=== PATIENT | female | born 1935 | race Caucasian/White ===

== ENCOUNTER → 2016-11-11 | Outpatient (REF) | payer MEDICARE, BC ==
[~2016-11-11] MED LIST: /GLIM2TA PO; /LOR25TA OR; ALLE180T33 PO; AMLO5TAB2 PO; ATEN50TA2 PO; BABY81CH; BYDUINJ INJ; BYETTA; COLA100C PO; COLA100C2; COLC1TAB13 PO; CORD200T PO; COUM1TAB14 PO; COUM1TAB19 PO; FLON1SPR; HYDR25TA6 PO; INSULANT SC; JANUVIA PO; LASI20TA PO; LEVO75TA4 PO; LIPITOR PO; LISI-538 PO; LISIPOW PO; MILKSUS PO; MIRA3350 PO; NEUR300C; NORV5TAB PO; NORVASC; NORVASC PO; PERC5TAB8; PERC5TAB8 OR; PERCOCET PO; POTA10CA PO; PRAV10TA4 PO; PRAV40TA PO; PRIN10TA PO; PROT1TAB2 PO; SENO8.6T2 PO; SYNT75TA PO; SYNTHROID PO; TENO25TA PO; TORS20TA2 PO; TRAM50TA2 PO; TYLE325T5 PO; ULTR50TA PO; VITA-130 PO; WARFARIN PO
== END ==
LOC: M SFHCPLAZ 17:01
PROVIDERS: ATTEND Physician Assistant Medical
DX: R30.0 Dysuria (principal)
CPT/HCPCS: 81001; 81002; 87086; G0463

== ENCOUNTER → 2016-11-26 | Outpatient (REF) | payer MEDICARE, BC ==
[2016-11-26 12:37] LABS: INR 4.3
== END ==
LOC: M SFHCPLAZ 11:30
PROVIDERS: ATTEND Physician Assistant Medical
DX: Z51.81 Encounter for therapeutic drug level monitoring (principal); Z79.01 Long term (current) use of anticoagulants

== ENCOUNTER → 2016-12-08 | Outpatient (REF) | payer MEDICARE, BC ==
[2016-12-08 18:22] LABS: INR 1.91
[2016-12-08 18:34] LABS: ALBUMIN 4.1 GM/DL (3.2-5.2); ALBUMIN/GLOBULIN RATIO 1.21 (1.00-1.93); BILIRUBIN,TOTAL 0.7 MG/DL (0.2-1.0); CALCIUM LEVEL 9.2 MG/DL (8.8-10.2); CREATININE FOR GFR 1.65 MG/DL (0.55-1.02); GLOMERULAR FILTRATION RATE 31.9 (>32); POTASSIUM SERUM 4.4 MEQ/L (3.5-5.1); TOTAL PROTEIN 7.5 GM/DL (6.4-8.2)
== END ==
LOC: M SFHCPLAZ 09:25
PROVIDERS: ATTEND Internal Medicine
DX: E11.9 Type 2 diabetes mellitus without complications (principal); E78.00 Pure hypercholesterolemia, unspecified; Z51.81 Encounter for therapeutic drug level monitoring; Z79.01 Long term (current) use of anticoagulants; I10 Essential (primary) hypertension; E03.9 Hypothyroidism, unspecified

== ENCOUNTER → 2016-12-23 | Outpatient (REF) | payer MEDICARE, BC ==
[2016-12-23 19:42] LABS: INR 1.78
== END ==
LOC: M SFHCPLAZ 13:11
PROVIDERS: ATTEND Internal Medicine
DX: Z51.81 Encounter for therapeutic drug level monitoring (principal); Z79.01 Long term (current) use of anticoagulants

== ENCOUNTER → 2017-01-07 | Outpatient (REF) | payer MEDICARE, BC | LOC: M SFHCPLAZ 11:38 | PROVIDERS: ATTEND Internal Medicine | DX: Z51.81 Encounter for therapeutic drug level monitoring (principal); Z79.01 Long term (current) use of anticoagulants ==

== ENCOUNTER → 2017-01-29 | Outpatient (REF) | payer MEDICARE, BC ==
[2017-01-29 13:35] LABS: INR 1.39
== END ==
LOC: M LABDRWAD 12:13
PROVIDERS: ATTEND Nurse Practitioner Family
DX: Z79.01 Long term (current) use of anticoagulants (principal)

== ENCOUNTER → 2017-02-16 | Outpatient (REF) | payer MEDICARE, BC ==
[~2017-02-16] MED LIST changes: -COLA100C PO; +COLA100C3 PO
[2017-02-16 13:46] LABS: INR 2.43
== END ==
LOC: M SFHCPLAZ 11:39
PROVIDERS: ATTEND Physician Assistant Medical
DX: I48.91 Unspecified atrial fibrillation (principal); Z79.01 Long term (current) use of anticoagulants

== ENCOUNTER → 2017-03-01 | Outpatient (REF) | payer MEDICARE, BC ==
[2017-03-01 20:12] LABS: INR 2.54
== END ==
LOC: M SFHCPLAZ 11:40
PROVIDERS: ATTEND Internal Medicine
DX: I48.91 Unspecified atrial fibrillation (principal); Z79.01 Long term (current) use of anticoagulants

== ENCOUNTER → 2017-04-02 | Outpatient (REF) | payer MEDICARE, BC ==
[2017-04-02 13:26] LABS: INR 3.5
== END ==
LOC: M SFHCPLAZ 10:38
PROVIDERS: ATTEND Internal Medicine
DX: I48.91 Unspecified atrial fibrillation (principal); Z79.01 Long term (current) use of anticoagulants

== ENCOUNTER → 2017-04-07 | Outpatient (REF) | payer MEDICARE, BC ==
[2017-04-07 13:02] LABS: INR 3.41
== END ==
LOC: M SFHCPLAZ 11:39
PROVIDERS: ATTEND Internal Medicine
DX: I48.91 Unspecified atrial fibrillation (principal); Z79.899 Other long term (current) drug therapy

== ENCOUNTER → 2017-04-14 | Outpatient (REF) | payer MEDICARE, BC ==
[2017-04-14 13:15] LABS: INR 1.65
== END ==
LOC: M SFHCPLAZ 10:48
PROVIDERS: ATTEND Internal Medicine
DX: I48.91 Unspecified atrial fibrillation (principal); Z79.899 Other long term (current) drug therapy

== ENCOUNTER → 2017-04-28 | Outpatient (REF) | payer MEDICARE, BC ==
[2017-04-28 19:32] LABS: INR 2.42
== END ==
LOC: M SFHCPLAZ 13:24
PROVIDERS: ATTEND Internal Medicine
DX: I48.91 Unspecified atrial fibrillation (principal); Z79.899 Other long term (current) drug therapy

== ENCOUNTER 2017-05-05 15:57 | Emergency (ER) | payer MEDICARE, BC ==
[~2017-05-05] VITALS: Ht 162.6 cm; Wt 81.0 kg
[~2017-05-05 15:57] MED LIST changes: -COLA100C3 PO; +COLA100C5 PO; -SENO8.6T2 PO; +SENO8.6T5 PO; -ULTR50TA PO; +ULTR50TA8 PO; -VITA-130 PO; +VITA500T PO
[2017-05-05 17:13] LABS: BASO % 0.7 % (0.0-1.0); EOS % 0.6 % (0.0-3.0); LARGE UNSTAINED CELL # 0.1 K/mm3 (0.0-0.4); LARGE UNSTAINED CELL % 1.4 % (0.0-4.0); LYMPH # 0.7 K/mm3 (1.5-4.5); LYMPH % 9.4 % (24.0-44.0); MEAN CORPUSCULAR HEMOGLOBIN 29.7 pg (27.0-33.0); MEAN CORPUSCULAR HGB CONC 32.4 g/dl (32.0-36.5); MEAN CORPUSCULAR VOLUME 91.9 fl (80.0-96.0); MONO # 0.5 K/mm3 (0.0-0.8); MONO % 6.4 % (0.0-5.0); NEUTROPHILS # 6.2 K/mm3 (1.8-7.7); NEUTROPHILS % 81.4 % (36.0-66.0); PLATELET COUNT, AUTOMATED 169 k/mm3 (150-450); RED CELL DISTRIBUTION WIDTH 14.7 % (11.5-14.5); WHITE BLOOD COUNT 7.6 K/mm3 (4.0-10.0)
[2017-05-05 17:32] LABS: ALBUMIN 3.5 GM/DL (3.2-5.2); ALBUMIN/GLOBULIN RATIO 1.06 (1.00-1.93); BILIRUBIN,DIRECT 0.2 MG/DL (0.0-0.2); BILIRUBIN,TOTAL 0.8 MG/DL (0.2-1.0); CALCIUM LEVEL 8.6 MG/DL (8.8-10.2); CREATININE FOR GFR 1.3 MG/DL (0.55-1.02); GLOMERULAR FILTRATION RATE 41.9 (>32); TOTAL PROTEIN 6.8 GM/DL (6.4-8.2)
[2017-05-05 19:13] VITALS: BP 127/70
--- NOTE | 2017-05-05 19:20 | REPUSA ---
CLINICAL HISTORY: Left lower quadrant pain. TECHNIQUE: Multiple axial CT images were obtained through the abdomen and pelvis without administrat ion of oral or IV contrast material. FINDINGS: There are several calcified hepatic granulomas present. There is no intra or extrahepatic biliary du ctal dilatation. There are several calcified splenic granulomas noted. There are multiple periphera lly calcified gallstones present measuring up to 18 mm. Consider correlation with a right upper quadr ant ultrasound. The pancreas is of normal contour and attenuation characteristics. There is no evid ence of adrenal mass. Both kidneys are mildly atrophic. They demonstrate areas of cortical thinning. There is a 3.7 cm cyst noted in the midpole of the left kidney posteriorly. There is a 3 cm cyst noted in the lower pole of the right kidney posteriorly. No renal or ureteral calculi are identified. There is no hydroureter or hydronephrosis. There is no evidence for appendicitis. There is no bowel wall thickening. There is sigmoid divertic ulosis present without evidence of diverticulitis. No evidence for small or large bowel obstruction. There is no evidence of abdominal ascites or lymphadenopathy. There is no evidence of intrinsic or extrinsic bladder mass. There is no pelvic ascites or lymphaden opathy. Status post complete hysterectomy. There is patchy opacity noted in the left lobe, exclude pneumonia clinically. Heart is enlarged. Pace maker leads are in place. Small hiatal hernia is present. No pleural effusion. The bony structures are free of lytic or blastic lesions. Status post bilateral total hip replacemen t. Hardware is intact. Due to significant streak artifact, evaluation of pelvic contents is somewhat limited. IMPRESSION: 1. Due to significant streak artifact, evaluation of pelvic contents is somewhat limited. 2. Sequelae of prior granulomatous disease. 3. There is patchy opacity noted in the left lobe, exclude pneumonia clinically. 4. Atrophic kidneys with bilateral renal cysts. 5. Sigmoid diverticulosis without evidence of acute diverticulitis. 6. Several large calcified gallstones. Consider correlation with right upper quadrant ultrasound. Thank you for your kind referral of this patient. We appreciate the opportunity to participate in thi s patient's care.
--- NOTE | 2017-05-06 07:37 | ECGEPIP ---
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
--- NOTE | 2017-05-06 15:32 | ED PDOC ---
Post-Departure Follow-Up dr viramontes faxed formal report of ct abd/p for fu Rani Hancock MD May 06, 2017 15:32
== END 2017-05-05 19:48 | disposition home or self-care (01) ==
LOC: EDBD 15:57 → M ED 15:57
DX: R10.9 Unspecified abdominal pain (principal); I10 Essential (primary) hypertension; Z95.0 Presence of cardiac pacemaker; Z87.891 Personal history of nicotine dependence; Z88.8 Allergy status to other drugs, medicaments and biological substances; Z88.5 Allergy status to narcotic agent; Z91.018 Allergy to other foods; Z79.899 Other long term (current) drug therapy; Z79.4 Long term (current) use of insulin; Z79.01 Long term (current) use of anticoagulants

== ENCOUNTER → 2017-05-12 | Outpatient (REF) | payer MEDICARE, BC ==
[2017-05-12 12:49] LABS: MEAN CORPUSCULAR HEMOGLOBIN 30.3 pg (27.0-33.0); MEAN CORPUSCULAR HGB CONC 32.9 g/dl (32.0-36.5); MEAN CORPUSCULAR VOLUME 92.2 fl (80.0-96.0); RED CELL DISTRIBUTION WIDTH 14.9 % (11.5-14.5); WHITE BLOOD COUNT 6.3 K/mm3 (4.0-10.0)
[2017-05-12 13:18] LABS: ALBUMIN 3.8 GM/DL (3.2-5.2); ALBUMIN/GLOBULIN RATIO 1.27 (1.00-1.93); BILIRUBIN,TOTAL 0.6 MG/DL (0.2-1.0); CALCIUM LEVEL 9.1 MG/DL (8.8-10.2); CREATININE FOR GFR 1.37 MG/DL (0.55-1.02); GLOMERULAR FILTRATION RATE 39.4 (>32); MAGNESIUM LEVEL 2.3 MG/DL (1.8-2.4); POTASSIUM SERUM 3.8 MEQ/L (3.5-5.1); TOTAL PROTEIN 6.8 GM/DL (6.4-8.2)
== END ==
LOC: M SFHCPLAZ 08:03
PROVIDERS: ATTEND Internal Medicine
DX: Z00.00 Encounter for general adult medical examination without abnormal findings (principal); Z79.899 Other long term (current) drug therapy; E11.29 Type 2 diabetes mellitus with other diabetic kidney complication; E78.00 Pure hypercholesterolemia, unspecified; I10 Essential (primary) hypertension; E03.9 Hypothyroidism, unspecified

== ENCOUNTER → 2017-05-28 | Outpatient (REF) | payer MEDICARE, BC ==
[2017-05-28 15:51] LABS: INR 2.54
== END ==
LOC: M SFHCADAM 12:57
PROVIDERS: ATTEND Internal Medicine
DX: I48.91 Unspecified atrial fibrillation (principal); Z79.01 Long term (current) use of anticoagulants

== ENCOUNTER → 2017-06-11 | Outpatient (REF) | payer MEDICARE, BC ==
[2017-06-11 19:26] LABS: INR 1.8
== END ==
LOC: M SFHCADAM 14:22
PROVIDERS: ATTEND Internal Medicine
DX: I48.91 Unspecified atrial fibrillation (principal); Z79.01 Long term (current) use of anticoagulants

== ENCOUNTER → 2017-06-25 | Outpatient (REF) | payer MEDICARE, BC ==
[2017-06-25 13:03] LABS: INR 2.07
== END ==
LOC: M SFHCADAM 09:09
PROVIDERS: ATTEND Internal Medicine
DX: I48.91 Unspecified atrial fibrillation (principal); Z79.01 Long term (current) use of anticoagulants

== ENCOUNTER → 2017-07-06 | Outpatient (CLI) | payer MEDICARE, BC ==
--- NOTE | 2017-07-06 15:03 | REP ---
Clinical: Pacemaker evaluation. Technique: PA and lateral. Comparison: 10/23/2015. Findings: Stable cardiomegaly is appreciated. Pacemaker and associated electrodes appear intact and stable, satisfactory position within the right atrium and right ventricle. The lung wooten demonstrate chronic interstitial changes and scattered suspected bronchiectasis and mild fibrosis. No focal consolidation, effusion, or pneumothorax. Skeletal structures demonstrate osteopenia and degenerative changes along with bilateral shoulder arthroplasty. Impression: Essentially stable chest x-ray. Chronic changes as described above. Pacemaker appears stable. Signed by Randy Carreno MD 07/06/2017 03:01 P
== END ==
LOC: M ADAMS 13:59
PROVIDERS: ATTEND Internal Medicine Cardiovascular Disease
DX: T82.120A Displacement of cardiac electrode, initial encounter (principal); X58.XXXA Exposure to other specified factors, initial encounter; Y93.9 Activity, unspecified; Y92.9 Unspecified place or not applicable; Y99.8 Other external cause status

== ENCOUNTER → 2017-07-26 | Outpatient (REF) | payer MEDICARE, BC ==
[2017-07-26 21:36] LABS: INR 2.64
== END ==
LOC: M SFHCADAM 13:16
PROVIDERS: ATTEND Internal Medicine
DX: I48.91 Unspecified atrial fibrillation (principal); Z79.01 Long term (current) use of anticoagulants

== ENCOUNTER → 2017-08-23 | Outpatient (REF) | payer MEDICARE, BC ==
[2017-08-23 14:31] LABS: INR 2.98
== END ==
LOC: M SFHCADAM 11:19
PROVIDERS: ATTEND Internal Medicine
DX: I48.91 Unspecified atrial fibrillation (principal); Z79.01 Long term (current) use of anticoagulants

== ENCOUNTER → 2017-09-28 | Outpatient (REF) | payer MEDICARE, BC ==
[2017-09-28 13:13] LABS: INR 3.17
== END ==
LOC: M SFHCADAM 10:32
PROVIDERS: ATTEND Internal Medicine
DX: I48.91 Unspecified atrial fibrillation (principal); Z79.01 Long term (current) use of anticoagulants

== ENCOUNTER → 2017-10-20 | Outpatient (REF) | payer MEDICARE, BC ==
[2017-10-20 20:00] LABS: INR 2.79
== END ==
LOC: M SFHCADAM 14:15
PROVIDERS: ATTEND Internal Medicine
DX: I48.91 Unspecified atrial fibrillation (principal); Z51.81 Encounter for therapeutic drug level monitoring; Z79.01 Long term (current) use of anticoagulants

== ENCOUNTER → 2017-11-11 | Outpatient (REF) | payer MEDICARE, BC ==
[2017-11-11 13:47] LABS: PTH INTACT 167.7 PG/ML (14.0-72.0)
[2017-11-11 13:52] LABS: CREATININE, URINE 30.4 MG/DL; MAU/CREAT RATIO 753.2 MCG/MG (0.0-30.0)
[2017-11-11 14:15] LABS: ALBUMIN 4.1 GM/DL (3.2-5.2); ALBUMIN/GLOBULIN RATIO 1.21 (1.00-1.93); ALKALINE PHOSPHATASE 120 U/L (45-117); ALT/SGPT 25 U/L (12-78); ANION GAP 8 MEQ/L (8-16); AST/SGOT 19 U/L (7-37); BILIRUBIN,TOTAL 0.8 MG/DL (0.2-1.0); BLOOD UREA NITROGEN 30 MG/DL (7-18); CALCIUM LEVEL 9.4 MG/DL (8.8-10.2); CARBON DIOXIDE LEVEL 33 MEQ/L (21-32); CHLORIDE LEVEL 102 MEQ/L (98-107); CHOLESTEROL LEVEL 192 MG/DL (<200); CREATININE FOR GFR 1.26 MG/DL (0.55-1.02); GLOMERULAR FILTRATION RATE 43.4 (>32); GLUCOSE, FASTING 119 MG/DL (83-110); HDL CHOLESTEROL 55 MG/DL (>40); MAGNESIUM LEVEL 2.4 MG/DL (1.8-2.4); NON-HDL-C 137 MG/DL; POTASSIUM SERUM 4.4 MEQ/L (3.5-5.1); SODIUM LEVEL 143 MEQ/L (136-145); TOTAL PROTEIN 7.5 GM/DL (6.4-8.2); TRIGLYCERIDES LEVEL 115 MG/DL (<150); URIC ACID 6.6 MG/DL (2.6-6.0)
[2017-11-11 14:55] LABS: ESTIMATED AVERAGE GLUCOSE 212 MG/DL (60-110)
== END ==
LOC: M SFHCADAM 10:46
DX: I10 Essential (primary) hypertension (principal); R79.89 Other specified abnormal findings of blood chemistry; E11.29 Type 2 diabetes mellitus with other diabetic kidney complication; E78.00 Pure hypercholesterolemia, unspecified; N18.3 Chronic kidney disease, stage 3 (moderate); M10.9 Gout, unspecified
CPT/HCPCS: 83735

== ENCOUNTER → 2017-12-14 | Outpatient (REF) | payer MEDICARE, BC ==
[2017-12-14 13:03] LABS: INR 2.31; PROTHROMBIN TIME 26.3 SECONDS (12.4-14.5)
== END ==
LOC: M SFHCPLAZ 12:10
DX: Z51.81 Encounter for therapeutic drug level monitoring (principal); Z79.01 Long term (current) use of anticoagulants
CPT/HCPCS: 85610

== ENCOUNTER → 2018-01-13 | Outpatient (REF) | payer MEDICARE, BC ==
[2018-01-13 17:12] LABS: INR 3.01; PROTHROMBIN TIME 32.6 SECONDS (12.4-14.5)
== END ==
LOC: M SFHCADAM 16:52
DX: Z79.01 Long term (current) use of anticoagulants (principal)
CPT/HCPCS: 85610

== ENCOUNTER → 2018-02-17 | Outpatient (REF) | payer MEDICARE, BC ==
[2018-02-17 19:38] LABS: INR 3.09; PROTHROMBIN TIME 33.3 SECONDS (12.4-14.5)
== END ==
LOC: M SFHCADAM 11:56
DX: I48.91 Unspecified atrial fibrillation (principal); Z79.01 Long term (current) use of anticoagulants
CPT/HCPCS: 85610

== ENCOUNTER → 2018-02-28 | Outpatient (REF) | payer MEDICARE, BC ==
[2018-02-28 13:40] LABS: HEMATOCRIT 42.1 % (36.0-47.0); HEMOGLOBIN 13.7 g/dl (12.0-15.5); MEAN CORPUSCULAR HEMOGLOBIN 30.1 pg (27.0-33.0); MEAN CORPUSCULAR HGB CONC 32.5 g/dl (32.0-36.5); MEAN CORPUSCULAR VOLUME 92.5 fl (80.0-96.0); PLATELET COUNT, AUTOMATED 167 10^3/uL (150-450); RED BLOOD COUNT 4.55 10^6/uL (4.00-5.40); WHITE BLOOD COUNT 5.8 10^3/uL (4.0-10.0)
[2018-02-28 13:55] LABS: PTH INTACT 202.6 PG/ML (18.5-88.0)
[2018-02-28 13:57] LABS: ALBUMIN/GLOBULIN RATIO 1.05 (1.00-1.93); ALKALINE PHOSPHATASE 122 U/L (45-117); ALT/SGPT 19 U/L (12-78); ANION GAP 5 MEQ/L (8-16); AST/SGOT 17 U/L (7-37); BILIRUBIN,TOTAL 0.5 MG/DL (0.2-1.0); BLOOD UREA NITROGEN 30 MG/DL (7-18); CALCIUM LEVEL 8.9 MG/DL (8.8-10.2); CARBON DIOXIDE LEVEL 35 MEQ/L (21-32); CHLORIDE LEVEL 102 MEQ/L (98-107); CHOLESTEROL LEVEL 189 MG/DL (<200); CHOLESTEROL RISK RATIO 3.937 (<5); CREATININE FOR GFR 1.32 MG/DL (0.55-1.30); GLOMERULAR FILTRATION RATE 41.1 (>32); GLUCOSE, FASTING 116 MG/DL (70-100); HDL CHOLESTEROL 48 MG/DL (>40); LDL CHOLESTEROL 119.2 MG/DL (<100); MAGNESIUM LEVEL 2.6 MG/DL (1.8-2.4); NON-HDL-C 141 MG/DL; POTASSIUM SERUM 4.3 MEQ/L (3.5-5.1); SODIUM LEVEL 142 MEQ/L (136-145); TOTAL PROTEIN 7.8 GM/DL (6.4-8.2); TRIGLYCERIDES LEVEL 109 MG/DL (<150)
[2018-02-28 14:12] LABS: CREATININE, URINE 26.2 MG/DL; MALB URINE SIEMENS 77.7 MG/L; MAU/CREAT RATIO 296.5 MCG/MG (0.0-30.0)
== END ==
LOC: M SFHCADAM 12:50
DX: I11.9 Hypertensive heart disease without heart failure (principal); N18.3 Chronic kidney disease, stage 3 (moderate); E03.9 Hypothyroidism, unspecified; E11.29 Type 2 diabetes mellitus with other diabetic kidney complication
CPT/HCPCS: 83735

== ENCOUNTER → 2018-03-17 | Outpatient (REF) | payer MEDICARE, BC ==
[2018-03-17 13:14] LABS: INR 3.76
== END ==
LOC: M SFHCADAM 08:03
DX: I48.91 Unspecified atrial fibrillation (principal); E11.29 Type 2 diabetes mellitus with other diabetic kidney complication; Z51.81 Encounter for therapeutic drug level monitoring; Z79.01 Long term (current) use of anticoagulants
CPT/HCPCS: 83036

== ENCOUNTER → 2018-03-17 | Outpatient (REF) | payer MEDICARE, BC ==
[2018-03-17 13:15] LABS: ESTIMATED AVERAGE GLUCOSE 206 MG/DL (60-110); HEMOGLOBIN A1c 8.8 %
== END ==
LOC: M LABDRWAD 12:27
DX: I48.91 Unspecified atrial fibrillation (principal); E11.29 Type 2 diabetes mellitus with other diabetic kidney complication; Z51.81 Encounter for therapeutic drug level monitoring; Z79.01 Long term (current) use of anticoagulants

== ENCOUNTER → 2018-04-05 | Outpatient (REF) | payer MEDICARE, BC ==
[2018-04-05 18:57] LABS: INR 1.69; PROTHROMBIN TIME 20.4 SECONDS (12.4-14.5)
== END ==
LOC: M SFHCADAM 11:35
DX: I48.91 Unspecified atrial fibrillation (principal); Z79.01 Long term (current) use of anticoagulants
CPT/HCPCS: 85610

== ENCOUNTER → 2018-04-19 | Outpatient (REF) | payer MEDICARE, BC ==
[2018-04-19 13:26] LABS: INR 1.92; PROTHROMBIN TIME 22.6 SECONDS (12.4-14.5)
== END ==
LOC: M SFHCADAM 10:40
DX: I48.91 Unspecified atrial fibrillation (principal); Z79.01 Long term (current) use of anticoagulants
CPT/HCPCS: 85610

== ENCOUNTER → 2018-05-05 | Outpatient (REF) | payer MEDICARE, BC ==
[2018-05-05 19:26] LABS: PROTHROMBIN TIME 21.2 SECONDS (12.1-14.4)
== END ==
LOC: M SFHCADAM 11:54
DX: I48.91 Unspecified atrial fibrillation (principal); Z79.01 Long term (current) use of anticoagulants
CPT/HCPCS: 85610

== ENCOUNTER → 2018-05-12 | Outpatient (REF) | payer MEDICARE, BC ==
[2018-05-12 12:53] LABS: INR 1.95; PROTHROMBIN TIME 22.6 SECONDS (12.1-14.4)
== END ==
LOC: M SFHCADAM 08:15
DX: Z51.81 Encounter for therapeutic drug level monitoring (principal); I48.91 Unspecified atrial fibrillation; Z79.01 Long term (current) use of anticoagulants
CPT/HCPCS: 85610

== ENCOUNTER → 2018-05-19 | Outpatient (REF) | payer MEDICARE, BC ==
[2018-05-19 13:07] LABS: INR 1.88
== END ==
LOC: M LABDRWAD 12:33
DX: Z51.81 Encounter for therapeutic drug level monitoring (principal); I48.91 Unspecified atrial fibrillation; Z79.01 Long term (current) use of anticoagulants
CPT/HCPCS: 85610

== ENCOUNTER → 2018-05-27 | Outpatient (REF) | payer MEDICARE, BC ==
[2018-05-27 13:29] LABS: PROTHROMBIN TIME 28.4 SECONDS (12.1-14.4)
== END ==
LOC: M SFHCPLAZ 10:33
DX: I48.91 Unspecified atrial fibrillation (principal); Z79.01 Long term (current) use of anticoagulants
CPT/HCPCS: 85610

== ENCOUNTER → 2018-06-14 | Outpatient (REF) | payer MEDICARE, BC ==
[2018-06-14 12:45] LABS: INR 3.12; PROTHROMBIN TIME 32.8 SECONDS (12.1-14.4)
== END ==
LOC: M SFHCADAM 09:10
DX: I48.91 Unspecified atrial fibrillation (principal)
CPT/HCPCS: 85610

== ENCOUNTER → 2018-07-14 | Outpatient (REF) | payer MEDICARE, BC ==
[2018-07-14 19:52] LABS: PROTHROMBIN TIME 24.9 SECONDS (12.1-14.4)
== END ==
LOC: M SFHCADAM 12:09
DX: I48.91 Unspecified atrial fibrillation (principal)
CPT/HCPCS: 85610

== ENCOUNTER → 2018-07-28 | Outpatient (REF) | payer MEDICARE, BC ==
[2018-07-28 18:05] LABS: INR 3.15; PROTHROMBIN TIME 33.1 SECONDS (12.1-14.4)
== END ==
LOC: M SFHCADAM 13:54
DX: I48.91 Unspecified atrial fibrillation (principal)
CPT/HCPCS: 85610

== ENCOUNTER → 2018-08-16 | Outpatient (REF) | payer MEDICARE, BC ==
[2018-08-16 20:22] LABS: INR 3.13; PROTHROMBIN TIME 32.9 SECONDS (12.1-14.4)
== END ==
LOC: M SFHCADAM 13:42
DX: I48.91 Unspecified atrial fibrillation (principal)
CPT/HCPCS: 85610

== ENCOUNTER → 2018-08-30 | Outpatient (REF) | payer MEDICARE, BC ==
[2018-08-30 13:02] LABS: INR 3.19; PROTHROMBIN TIME 33.4 SECONDS (12.1-14.4)
== END ==
LOC: M SFHCADAM 10:00
DX: I48.91 Unspecified atrial fibrillation (principal); Z79.01 Long term (current) use of anticoagulants
CPT/HCPCS: 85610

== ENCOUNTER → 2018-09-12 | Outpatient (REF) | payer MEDICARE, BC ==
[2018-09-12 13:12] LABS: INR 2.14; PROTHROMBIN TIME 24.3 SECONDS (12.1-14.4)
[2018-09-12 14:27] LABS: ALBUMIN 3.9 GM/DL (3.2-5.2); ALBUMIN/GLOBULIN RATIO 1.15 (1.00-1.93); ALKALINE PHOSPHATASE 121 U/L (45-117); ALT/SGPT 19 U/L (12-78); ANION GAP 10 MEQ/L (8-16); AST/SGOT 17 U/L (7-37); BILIRUBIN,TOTAL 0.9 MG/DL (0.2-1.0); BLOOD UREA NITROGEN 25 MG/DL (7-18); CALCIUM LEVEL 9.3 MG/DL (8.8-10.2); CARBON DIOXIDE LEVEL 31 MEQ/L (21-32); CHLORIDE LEVEL 99 MEQ/L (98-107); CHOLESTEROL LEVEL 202 MG/DL (<200); CHOLESTEROL RISK RATIO 3.884 (<5); CREATININE FOR GFR 1.26 MG/DL (0.55-1.30); GLOMERULAR FILTRATION RATE 43.3 (>32); GLUCOSE, FASTING 124 MG/DL (70-100); HDL CHOLESTEROL 52 MG/DL (>40); LDL CHOLESTEROL 125 MG/DL (<100); MAGNESIUM LEVEL 2.1 MG/DL (1.8-2.4); NON-HDL-C 150 MG/DL; PTH INTACT 207.2 PG/ML (18.5-88.0); SODIUM LEVEL 140 MEQ/L (136-145); TOTAL 25(OH) VITAMIN D 27.6 NG/ML (30.0-100.0); TOTAL PROTEIN 7.3 GM/DL (6.4-8.2); TRIGLYCERIDES LEVEL 127 MG/DL (<150); URIC ACID 6.1 MG/DL (2.6-6.0)
[2018-09-12 14:32] LABS: ESTIMATED AVERAGE GLUCOSE 192 MG/DL (60-110); HEMOGLOBIN A1c 8.3 %
[2018-09-12 18:00] LABS: MAU/CREAT RATIO 690.5 MCG/MG (0.0-30.0)
== END ==
LOC: M SFHCADAM 08:58
DX: E11.29 Type 2 diabetes mellitus with other diabetic kidney complication (principal); E78.00 Pure hypercholesterolemia, unspecified; N18.3 Chronic kidney disease, stage 3 (moderate); M10.9 Gout, unspecified
CPT/HCPCS: 83735

== ENCOUNTER → 2018-09-27 | Outpatient (REF) | payer MEDICARE, BC ==
[2018-09-27 20:19] LABS: PTH INTACT 156.9 PG/ML (18.5-88.0)
== END ==
LOC: M LABDRWAD 19:22
DX: N18.3 Chronic kidney disease, stage 3 (moderate) (principal)
CPT/HCPCS: 83970

== ENCOUNTER → 2018-10-26 | Outpatient (REF) | payer MEDICARE, BC ==
[~2018-10-26] MED LIST changes: -AMLO5TAB2 PO; +AMLO5TAB6 PO; +KLOR10TA76 PO; +MILK120011 PO; -MILKSUS PO; -POTA10CA PO
[2018-10-26 19:48] LABS: INR 4.35; PROTHROMBIN TIME 42.7 SECONDS (12.1-14.4)
== END ==
LOC: M LABDRWAD 09:38
PROVIDERS: ATTEND Internal Medicine
DX: Z79.01 Long term (current) use of anticoagulants (principal)

== ENCOUNTER → 2018-11-08 | Outpatient (REF) | payer MEDICARE, BC ==
[2018-11-08 21:21] LABS: INR 1.84; PROTHROMBIN TIME 21.6 SECONDS (12.1-14.4)
== END ==
LOC: M LABDRWAD 19:35
PROVIDERS: ATTEND Internal Medicine
DX: Z79.01 Long term (current) use of anticoagulants (principal)

== ENCOUNTER → 2018-11-22 | Outpatient (REF) | payer MEDICARE, BC ==
[~2018-11-22] MED LIST changes: +ALLO100T PO; +ATOR1TAB21 PO; +CORE3.12 PO
== END ==
LOC: M SFHCADAM 15:16
PROVIDERS: ATTEND Internal Medicine
DX: Z79.01 Long term (current) use of anticoagulants (principal)

== ENCOUNTER 2018-11-23 14:39 | Emergency (ER) | payer MEDICARE, BC ==
[~2018-11-23] VITALS: Ht 162.6 cm; Wt 79.1 kg
[~2018-11-23 14:39] MED LIST changes: -ALLO100T PO; -ATOR1TAB21 PO; -CORE3.12 PO
[2018-11-23] MEDS ORDERED: ATOR1TAB21 PO (16:00)
[2018-11-23] MEDS ORDERED: ALLO100T PO (16:00)
[2018-11-23] MEDS ORDERED: CORE3.12 PO (16:00)
--- NOTE | 2018-11-23 16:09 | REP ---
LEFT ANKLE, FOUR VIEWS: Four views of the left ankle performed. There are comminuted fractures of the distal tibia and fibula which are slightly displaced. There is an old fracture of the medial malleolus. There is osteopenia. There is calcaneal spurring. Electronically Signed by Abilio Bingham MD 11/23/2018 05:21 P
--- NOTE | 2018-11-23 16:15 | REP ---
LEFT LOWER LEG: AP and lateral views of the left lower leg are performed. There are comminuted fractures of the distal tibia and fibula. There is an old fracture of the medial malleolus. There is a metallic knee prosthesis in place with old fractures of the proximal tibia and fibula. There is osseous resorption the proximal end of the tibia adjacent to the prosthesis and cement. There is diffuse osteopenia. Electronically Signed by Abilio Bingham MD 11/23/2018 05:21 P
[2018-11-23] MEDS ORDERED: NS 500 ML IV ONE (17:00)
[2018-11-23 17:19] LABS: BASO % 0.5 % (0.0-1.0); EOS # 0.1 10^3/uL (0.0-0.50); EOS % 1.7 % (0.0-3.0); HEMATOCRIT 42.7 % (36.0-47.0); HEMOGLOBIN 13.8 g/dl (12.0-15.5); LYMPH % 11.6 % (24.0-44.0); MEAN CORPUSCULAR HEMOGLOBIN 29.5 pg (27.0-33.0); MEAN CORPUSCULAR HGB CONC 32.3 g/dl (32.0-36.5); MEAN CORPUSCULAR VOLUME 91.2 fl (80.0-96.0); MONO # 0.5 10^3/uL (0.0-0.8); MONO % 6.3 % (0.0-5.0); NEUTROPHILS # 6.6 10^3/uL (1.8-7.7); NEUTROPHILS % 79.5 % (36.0-66.0); PLATELET COUNT, AUTOMATED 200 10^3/uL (150-450); RED BLOOD COUNT 4.68 10^6/uL (4.00-5.40); WHITE BLOOD COUNT 8.3 10^3/uL (4.0-10.0)
[2018-11-23 17:39] LABS: INR 2.06; PROTHROMBIN TIME 23.6 SECONDS (12.1-14.4)
[2018-11-23 17:43] LABS: CALCIUM LEVEL 9.1 MG/DL (8.8-10.2); CREATININE FOR GFR 1.15 MG/DL (0.55-1.30); GLOMERULAR FILTRATION RATE 48.1 (>32); POTASSIUM SERUM 3.7 MEQ/L (3.5-5.1)
[2018-11-23] MEDS ORDERED: ONDANSETRON 4 MG ORAL DISINTEGRATING TAB (Q0162 PER 1MG) PO ONE (18:00)
[2018-11-23] MEDS ORDERED: NORCO, ANEXSIA 5/325MG TABLET (HYDROcodone/ACETAMINOPHEN) PO ONE (18:00)
[2018-11-23] MEDS ORDERED: MORPHINE 2 MG/ML 1ML SYRINGE (J2270) IV ONE (19:15)
[2018-11-23 19:28] VITALS: BP 168/87
--- NOTE | 2018-11-24 21:02 | CR ---
DATE OF CONSULTATION: 11/23/2018 INDICATION: Left tibia fracture. HISTORY OF PRESENT ILLNESS: Karen is a very pleasant 83-year-old female who sustained a left distal tibia fracture after fall on ice on 11/23/2018. 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 The patient was reporting moderate pain toward the ankle. No new numbness. For the patient's full past medical history, past surgical history, medications, allergies, social history, and review of systems, please see the emergency room (ER) intake form. On exam, this is a elderly female in no distress. She is alert and times three. Neurologic: Appropriate mood and very pleasant affect. Cardiovascular: 2+ posterior tibialis (PT) pulse. Pulmonary: Nonlabored breathing. Skin: The left leg shows a healed total knee arthroplasty incision. No skin breakdown at the ankle. Musculoskeletal: Calf compartments were soft and compressible. There was very mild swelling in the ankle. She had tenderness to palpation as expected at the distal tibia fracture site. She is able to fire extensor hallucis longus (EHL) and flexor hallucis longus (FHL) against resistance. Sensation to light touch in the foot was intact. There was no pain with passive stretch. X-rays of the knee, tibial-fibula and ankle, were obtained in the ER, showing a previous midshaft tibia fracture that had healed at the tip of the tibial prosthesis. There is an acute fracture of the metadiaphysis with only mild displacement on anterior-posterior (AP), lateral, and oblique views. ASSESSMENT AND PLAN: Karen is an 83-year-old female with an mildly displaced left distal tibia fracture. I discussed operative and nonoperative treatment with the patient and the three daughters who were at the bedside. My opinion is that there is really no role for surgery given how excellent her alignment is, and certainly her surgery would be very complicated with all the prior surgeries she has already had on that leg. We discussed cast immobilization versus splinting. Given the fact that she is on Coumadin, there is concern for her developing compartment syndrome in a cast, so I recommended splinting and then following up in the office in 5 days to be placed into a long-leg cast, and the patient agreed. A well-padded long-leg posterior plaster splint was applied as well as plaster sugar-tong splint with the knee in about 15 degrees of flexion. The ankle placed in neutral dorsiflexion A gentle mold was applied. I then additionally applied medial and lateral struts with fiberglass at the knee to provide further support. The patient tolerated the procedure well. DISPOSITION: She is going to be strictly nonweightbearing with a walker or wheelchair, and she will have to elevate the leg. She should make sure she is taking vitamin D 6026-5569 units daily for the next 3 months. She will followup in the office early next week, November 28 or , where we will place until long-leg fiberglass cast. All her questions were answered. She agreed with the plan MTDD
== END 2018-11-23 20:13 | disposition home or self-care (01) ==
LOC: EDBD 14:39 → M ED 14:39
DX: S82.452A Displaced comminuted fracture of shaft of left fibula, initial encounter for closed fracture (principal); S82.302A Unspecified fracture of lower end of left tibia, initial encounter for closed fracture; W19.XXXA Unspecified fall, initial encounter; Y92.481 Parking lot as the place of occurrence of the external cause
CPT/HCPCS: 73590; 73610; 80048; 85025; 85610; 96374; 99284; J2270; Q0162

== ENCOUNTER → 2018-11-23 | Outpatient (REF) | payer MEDICARE, BC ==
[2018-11-23 19:37] LABS: INR 2.26; PROTHROMBIN TIME 25.4 SECONDS (12.1-14.4)
== END ==
LOC: M SFHCADAM 13:28
PROVIDERS: ATTEND Internal Medicine
DX: Z79.01 Long term (current) use of anticoagulants (principal)

== ENCOUNTER → 2019-03-16 | Outpatient (REF) | payer MEDICARE, BC ==
[~2019-03-16] MED LIST changes: -/GLIM2TA PO; +ALLO100T PO; +AMAR1TAB5 PO; +ATOR1TAB21 PO; +CORE3.12 PO; +OXYC1TAB23 PO; -PERCOCET PO
[2019-03-16 13:32] LABS: INR 1.76; PROTHROMBIN TIME 20.9 SECONDS (12.1-14.4)
== END ==
LOC: M SFHCADAM 09:18
PROVIDERS: ATTEND Internal Medicine
DX: E11.29 Type 2 diabetes mellitus with other diabetic kidney complication (principal); I48.91 Unspecified atrial fibrillation; Z79.01 Long term (current) use of anticoagulants

== ENCOUNTER 2019-04-03 06:09 | Emergency (ER) | payer MEDICARE, BC ==
[~2019-04-03] VITALS: Ht 157.5 cm; Wt 79.5 kg
[2019-04-03 06:42] LABS: BASO # 0.1 10^3/uL (0.0-0.2); BASO % 0.5 % (0.0-1.0); EOS # 0.1 10^3/uL (0.0-0.50); EOS % 1.5 % (0.0-3.0); HEMATOCRIT 41.8 % (36.0-47.0); HEMOGLOBIN 13.5 g/dl (12.0-15.5); LYMPH # 0.8 10^3/uL (1.5-4.5); LYMPH % 8.3 % (24.0-44.0); MEAN CORPUSCULAR HEMOGLOBIN 29.5 pg (27.0-33.0); MEAN CORPUSCULAR HGB CONC 32.3 g/dl (32.0-36.5); MEAN CORPUSCULAR VOLUME 91.5 fl (80.0-96.0); MONO # 0.6 10^3/uL (0.0-0.8); MONO % 6.5 % (0.0-5.0); NEUTROPHILS # 7.9 10^3/uL (1.8-7.7); NEUTROPHILS % 82.9 % (36.0-66.0); PLATELET COUNT, AUTOMATED 174 10^3/uL (150-450); RED BLOOD COUNT 4.57 10^6/uL (4.00-5.40); WHITE BLOOD COUNT 9.5 10^3/uL (4.0-10.0)
[2019-04-03 06:56] LABS: BLOOD UREA NITROGEN 37 MG/DL (7-18); CALCIUM LEVEL 9.3 MG/DL (8.8-10.2); CARBON DIOXIDE LEVEL 32 MEQ/L (21-32); CHLORIDE LEVEL 102 MEQ/L (98-107); CPK CREATINE PHOSPHOKINASE 37 U/L (26-192); CREATININE FOR GFR 1.54 MG/DL (0.55-1.30); GLOMERULAR FILTRATION RATE 34.3 (>32); GLUCOSE, FASTING 123 MG/DL (70-100); MAGNESIUM LEVEL 2.7 MG/DL (1.8-2.4); MB/CK RELATIVE INDEX 5.41 (< OR =4); POTASSIUM SERUM 3.8 MEQ/L (3.5-5.1); SODIUM LEVEL 141 MEQ/L (136-145); TROPONIN I < 0.02 NG/ML (< 0.10)
[2019-04-03] MEDS ORDERED: D5W/0.45% SODIUM CHLORIDE 1,000 ML IV ONE (09:00)
[2019-04-03] MEDS ORDERED: KCL 10MEQ/100ML SWI (KRUN) 10 MEQ in APPROPRIATE DILUENT 1 EA IV ONE (09:00)
[2019-04-03 09:15] VITALS: BP 173/84
[2019-04-03 09:24] LABS: INR 2.04; PROTHROMBIN TIME 23.4 SECONDS (12.1-14.4)
--- NOTE | 2019-04-03 09:43 | CR ---
DATE OF CONSULTATION: 04/03/2019 CARDIOLOGY CONSULTATION REFERRING PHYSICIAN: Dr. Rani Bingham, emergency room. PRIMARY CARE PROVIDER: Dr. Bradley Alfred INDICATION: Recurrent implantable cardiac defibrillator (ICD) discharges with near syncope. HISTORY: This 83-year-old, , mother of five grown children, retired resident of [place], [place] is well-known to my cardiology practice with hypertensive and valvular heart disease complicated by sick sinus syndrome - tachy-rika syndrome with prior dual-chamber pacemaker implant December 2005 with subsequent chronic atrial fibrillation, pacemaker upgraded to biventricular (BiV) ICD January 2014 for heart failure (systolic and diastolic dysfunction). March 2014 underwent AV sheryl ablation to prevent inappropriate ICD discharges with her chronic atrial fibrillation. January 25, 2017 underwent extraction of right ventricular ICD pacing / shocking lead but unsuccessful extraction of malfunctioning LV pacing lead. New ICD was implanted (Medtronic - Viva XT BEAD STRINGER- D, [id number]. She has been followed regularly through our office and had an estimated battery longevity of approximately 9 months. The past several days she has been having intermittent near syncopal spells. This morning she woke up with three ICD discharges. Ambulance was called, and she was transferred to [facility] emergency room. Having suffered a leg fracture earlier this year, she has actually recuperated quite well and is able to ambulate perhaps up to 100 feet at her own pace using a walker, ultimately limited by shortness of breath and fatigue. No history of chest pain. Only rare nocturnal dyspnea. Usually sleeps well. Has been unaware of her heart action. Near syncopal spells. On oral anticoagulant therapy (Coumadin). Has been free of systemic thromboembolic event or hemorrhagic complication. Last seen in our office March 23, 2019 and appeared quite compensated. No medication adjustments were made at that time. She was given a 6 month followup appointment. CORONARY RISK FACTORS: Advanced age. Obesity. Long-standing hypertension. Hypercholesterolemia. Former smoker. Insulin-dependent diabetes mellitus. No family history of premature coronary disease. No symptomatic carotid vascular disease. MOST RECENT CARDIAC TESTING: Regadenoson Cardiolite heart scan December 2013 showed no inducible chest pain or EKG change. Mildly dilated left ventricle with paradoxical septal wall motion and otherwise hypokinesis with left ventricular ejection fraction of 25%. Normal stress SPECT myocardial perfusion images. No sign of ischemia. Echocardiogram July 15, 2016 following BiV ICD implant showed a normal-sized left ventricle with normal wall motion, LVEF 65%. Severe left atrial enlargement with normal size right ventricle but moderate pulmonary hypertension. Right atrium was also enlarged. Moderate mitral annular calcification with mild regurgitation. Moderate aortic valvular sclerosis without functional abnormality. No pericardial effusion. OTHER PAST MEDICAL HISTORY: Obesity. Pericardial effusion post pericardial window October 2005. Degenerative joint disease. REVIEW OF SYSTEMS: Has been free of any fever, chills or weight loss. Wears corrective lenses. No hearing problems. No recent cough or change in effort dyspnea. No abdominal pain or change in bowel habit. No gastrointestinal bleeding. Nocturia times two is chronic. Chronic arthralgia and low back pain. Known hypothyroidism, on replacement therapy. Bruising tendency. All other systems review is negative. PAST SURGICAL HISTORY: Five children with two prior dilatation and curettage procedures in 1965 and 1975. Appendectomy 1975. Tubal ligation in 1975. Right knee replacement in the . Hip replacement in the . Last hip replacement August 2010 on left. Repeat left knee replacement May 2010. Shoulder replacements June 2012 and November 2012. Bilateral carpal tunnel replacements and releases. Bilateral cataract extractions. MEDICATIONS: - carvedilol 3.25 mg twice a day - lisinopril 20 mg daily - Norvasc 5 mg daily - torsemide 40 mg by mouth twice a day - atorvastatin 20 mg twice weekly - allopurinol 100 mg daily - KCl 40 mEq daily - Synthroid 75 mcg daily - Lantus insulin as directed - Ana Maria 180 mg daily as needed - Flonase 2 inhalations each nostril daily as needed - Tylenol 325 mg one or two tablets daily as needed - tramadol 50 mg tablets one tablet every 6 hours as needed for pain despite Tylenol - Vitamin B12 1000 mcg daily - Farxiga 5 mg daily - Gas Relief extra strength 125 mg as needed ALLERGIES/INTOLERANCES: - VIOXX - CLONIDINE - TOPROL XL - CATAPRES - AVANDIA - GLUCOPHAGE - CRESTOR - LIPITOR - CODEINE causes nausea and vomiting - MORPHINE causes nausea and vomiting - LATEX causes rash and hives - JANUVIA causes nausea and vomiting - TRADJENTA causes unknown reaction PHYSICAL EXAMINATION CONSTITUTIONAL: Pleasant, bright, overweight, elderly lady laying comfortably with the head of bed elevated 30 degrees. Vital signs: Heart rate 60 beats per minute and regular with intermittent irregularities. Blood pressure 168/78 supine, 162/74 sitting, respiratory rate 16, oxygen saturation 98% on room air. Weight 173 pounds, height 65 inches, BMI 28.8. Eyes: Normal conjunctivae and lids. No xanthelasma. Mouth: Dentures. Normal oral moisture. No central cyanosis or pallor. Neck: Trachea midline. Thyroid not enlarged. Jugular veins were approximately 3 cm above the sternal angle. Respiratory: Slightly increased anteroposterior chest diameter with fair chest expansion. Well-healed ICD incision in left subclavian region. Has fair air entry over both lung wooten with no current abnormal pulmonary adventitious sounds. Cardiovascular: Apical impulse not palpable. Heart sounds somewhat distant. Soft systolic ejection murmur lower left sternal border, does not radiate well to the base. No diastolic murmur or rub. Normal carotid upstrokes and volume with no bruits. Upper extremity pulses were normal. Abdominal aorta was not palpable. Femoral pulses were difficult palpate because of her obesity. Pedal pulses were palpable. No dependent edema. No varicose veins. Extremities: No clubbing, peripheral cyanosis or splinter hemorrhages. Gastrointestinal: Soft, obese, nontender abdomen with no hepatosplenomegaly. Musculoskeletal: Multiple joint replacements, as mentioned above, but no other joint deformities. We did not assess her ambulation in light of her problems. Some proximal muscle weakness but normal tone. Skin: No rashes, ecchymotic lesions, pallor or icterus. Neurologic/Psychiatric: Bright, alert and oriented. Gave a lucid history. Eye, facial, extremity movements were symmetrical and normal. INVESTIGATIONS: Portable upright chest x-ray reviewed independently and shows obvious cardiomegaly, even allowing for this technique. Unfolded thoracic aorta with calcification of aortic arch. Pulmonary vasculature did not appear to be abnormal. No localized infiltrate. Elevated left hemidiaphragm. No pleural effusion. Biventricular ICD pulse generator left subclavian region with leads terminating in the RV outflow track from prior initial pacemaker implant 2005, RV pacing / shocking lead at the RV apex. Atrial lead in the high right atrial appendage. LV lead in a posterolateral branch of the great cardiac vein. Bilateral shoulder replacements. EKG: Reviewed independently and shows underlying sinus rhythm with complete heart block. Paced QRS complexes having a leftward axis and left bundle branch block configuration in keeping with RV apical stimulation. Telemetry monitoring: Has intermittent evidence of oversensing without pacing artifacts revealing underlying complete heart block with occasional spontaneous QRS complex. BLOOD WORK: Hemoglobin 13.5 with normal white blood cell count and platelet count. Electrolyte balance with potassium 3.8. Moderate renal insufficiency with BUN 37, creatinine 1.5, glomerular filtration rate estimated at 34. Fasting glucose 123. Normal serum calcium. Magnesium level of the elevated 2.7. Negative Troponin I and normal CPK. Biventricular ICD device interrogation: Reviewing her Medtronic - Viva XT BEAD STRINGER settings: Mode was VVIR, low rate of 60, upper sensor rate 120. Current estimated battery voltage 8 months. Atrial lead impedance 342 ohms. Right ventricular impedance is currently 418 ohms. LV lead impedance 2850 ohms. Recent capture threshold in the right ventricle was 1.375 volts at 0.4 and intracardiac electrograms showed R wave of 4.6. Reviewing her device episodes, it was evident that intermittent episodes of oversensing were related to lead fracture. Her discharges this morning were also related to lead fracture and RV lead artifact leading to misinterpretation of ventricular fibrillation with inappropriate discharges. IMPRESSION/PLAN: 1. Right ventricular pacing / shocking lead fracture: This is leading to intermittent oversensing and mal pacing, as well as in appropriate device tachycardia therapies. In order to prevent further tachycardia treatments, her tachycardia therapies have been inactivated. 2. Complete heart block / post AV sheryl ablation: As mentioned above, in light of intermittent oversensing, her right ventricular pacing has been inconsistent and leading to near syncopal spells. She remains on a monitoring manager with pads in place if backup ventricular pacing is necessary. 3. 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 Her battery voltage near elective replacement indicator. We are aware of her defective LV pacing lead from the past, currently having the right ventricular pacing / shocking lead malfunction as mentioned. Remains on Coumadin. Has not had any complications with oral anticoagulant therapy. 4. Heart failure (systolic and diastolic / chronic): Has been remarkably compensated on her current combination medical therapy. Chemistry confirms electrolyte balance with moderate chronic renal insufficiency. Complete blood count was normal. 5. Hypertensive heart disease (benign with heart failure): Has current systolic hypertension related to anxiety and the fact that she has not been given her customary medications this morning in light of her near syncopal spells. Chemistry as mentioned above. 6. 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 In light of her above difficulties, I have spoken with Dr. Richards, remote operations producer, [facility], who will arrange for device replacement later today. She will be kept nothing by mouth and be given IV fluid replacement therapy. Thank you, Dayton Montalvo MD, [facility]
--- NOTE | 2019-04-03 10:42 | REP ---
REASON: Left sided rales. COMPARISON: 10/23/2015 a portable exam and the latest prior. The technique utilized in obtaining the radiograph has magnified the cardiac silhouette and accentuated the interstitial markings. Cardiomediastinal silhouette is unchanged. There is mild cardiomegaly. Pacemaker device unchanged. Interstitial fibrotic changes with basilar predominance status quo. No acute patchy parenchymal opacities or pleural effusions have developed. There is elevation of the diaphragmatic structures of the left lung likely due to bowel gas. There is no change in the osseous structures. IMPRESSION: Chronic changes as described above. Consider PA and lateral views of the chest. Electronically Signed by Gallito Stephenson DO 04/03/2019 12:56 P
--- NOTE | 2019-04-03 15:15 | ECGEPIP ---
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
== END 2019-04-03 09:31 | disposition short-term general hospital (02) ==
LOC: M ED 06:09
DX: R94.31 Abnormal electrocardiogram [ECG] [EKG] (principal); Z95.0 Presence of cardiac pacemaker; I44.2 Atrioventricular block, complete; T82.118A Breakdown (mechanical) of other cardiac electronic device, initial encounter; Y92.9 Unspecified place or not applicable; Y93.9 Activity, unspecified; I50.9 Heart failure, unspecified; E11.9 Type 2 diabetes mellitus without complications; I10 Essential (primary) hypertension; Z87.891 Personal history of nicotine dependence; Z79.4 Long term (current) use of insulin; Z79.01 Long term (current) use of anticoagulants; Z79.899 Other long term (current) drug therapy; Z91.018 Allergy to other foods; Z88.8 Allergy status to other drugs, medicaments and biological substances; Z88.5 Allergy status to narcotic agent

== ENCOUNTER → 2019-04-13 | Outpatient (REF) | payer MEDICARE, BC ==
[2019-04-13 19:32] LABS: INR 1.29; PROTHROMBIN TIME 16.3 SECONDS (12.1-14.4)
== END ==
LOC: M SFHCADAM 13:24
PROVIDERS: ATTEND Internal Medicine
DX: E11.29 Type 2 diabetes mellitus with other diabetic kidney complication (principal); I48.91 Unspecified atrial fibrillation; Z79.01 Long term (current) use of anticoagulants

== ENCOUNTER → 2019-04-27 | Outpatient (REF) | payer MEDICARE, BC ==
[2019-04-27 18:01] LABS: INR 2.17
[2019-04-27 18:17] LABS: HEMOGLOBIN A1c 9.6 %
== END ==
LOC: M SFHCADAM 13:21
PROVIDERS: ATTEND Internal Medicine
DX: E11.29 Type 2 diabetes mellitus with other diabetic kidney complication (principal); I48.91 Unspecified atrial fibrillation; Z79.01 Long term (current) use of anticoagulants
CPT/HCPCS: 36415; 83036; 85610; G0463

== ENCOUNTER → 2019-05-23 | Outpatient (REF) | payer MEDICARE, BC | LOC: M SFHCADAM 10:22 | PROVIDERS: ATTEND Internal Medicine | DX: E11.29 Type 2 diabetes mellitus with other diabetic kidney complication (principal); I48.91 Unspecified atrial fibrillation; Z79.01 Long term (current) use of anticoagulants ==

== ENCOUNTER → 2019-05-25 | Outpatient (REF) | payer MEDICARE, BC ==
[2019-05-25 19:33] LABS: INR 4.05; PROTHROMBIN TIME 39.5 SECONDS (11.8-14.0)
== END ==
LOC: M SFHCADAM 14:37
PROVIDERS: ATTEND Internal Medicine
DX: E11.29 Type 2 diabetes mellitus with other diabetic kidney complication (principal); I48.91 Unspecified atrial fibrillation; Z79.01 Long term (current) use of anticoagulants

== ENCOUNTER → 2019-06-01 | Outpatient (REF) | payer MEDICARE, BC ==
[2019-06-01 20:18] LABS: INR 2.94; PROTHROMBIN TIME 30.6 SECONDS (11.8-14.0)
== END ==
LOC: M SFHCADAM 14:30
PROVIDERS: ATTEND Internal Medicine
DX: E11.29 Type 2 diabetes mellitus with other diabetic kidney complication (principal); I48.91 Unspecified atrial fibrillation; Z79.01 Long term (current) use of anticoagulants

== ENCOUNTER → 2019-06-15 | Outpatient (REF) | payer MEDICARE, BC ==
[~2019-06-15] MED LIST changes: +B-122500 PO; +BACL10TA2 PO; +BISA10SU4 PR; +CARV3.12 PO; +CHOL100029 PO; +FERR325T3 PO; +FLON1SPR NARES; +GLIP5TAB20 PO; +GLUC1KIT IM; +LANTINJ4 SC; +MILKSUS3 PO; +OXYC-517 PO; +PROC10TA4 PO; +QC A650T3 PO; +ROCA0.25 PO; +ROCA0.5C PO; +SEAMKIT PR; +SENN8.6T58 PO; +SIME40TA PO; +WARF4TAB51 PO
[2019-06-15 13:30] LABS: ALBUMIN 3.6 GM/DL (3.2-5.2); BILIRUBIN,TOTAL 0.5 MG/DL (0.2-1.0); CALCIUM LEVEL 9.5 MG/DL (8.8-10.2); CREATININE FOR GFR 1.54 MG/DL (0.55-1.30); GLOMERULAR FILTRATION RATE 34.2 (>32); MAGNESIUM LEVEL 2.3 MG/DL (1.8-2.4); POTASSIUM SERUM 4.3 MEQ/L (3.5-5.1); TOTAL PROTEIN 7.2 GM/DL (6.4-8.2)
[2019-06-15 13:51] LABS: CREATININE, URINE 46.3 MG/DL; MAU/CREAT RATIO 606.9 MCG/MG (0.0-30.0)
[2019-06-15 14:43] LABS: HEMOGLOBIN A1c 9.4 %
== END ==
LOC: M SFHCADAM 08:41
PROVIDERS: ATTEND Internal Medicine
DX: I12.9 Hypertensive chronic kidney disease with stage 1 through stage 4 chronic kidney disease, or unspecified chronic kidney disease (principal); E11.29 Type 2 diabetes mellitus with other diabetic kidney complication; N18.3 Chronic kidney disease, stage 3 (moderate)

== ENCOUNTER → 2019-07-19 | Outpatient (REF) | payer MEDICARE, BC ==
[~2019-07-19] MED LIST changes: -B-122500 PO; -BACL10TA2 PO; -BISA10SU4 PR; -CARV3.12 PO; -CHOL100029 PO; -FERR325T3 PO; -FLON1SPR NARES; -GLIP5TAB20 PO; -GLUC1KIT IM; -LANTINJ4 SC; -MILKSUS3 PO; -OXYC-517 PO; -PROC10TA4 PO; -QC A650T3 PO; -ROCA0.25 PO; -ROCA0.5C PO; -SEAMKIT PR; -SENN8.6T58 PO; -SIME40TA PO; -WARF4TAB51 PO
[2019-07-19 20:36] LABS: INR 2.67; PROTHROMBIN TIME 28.3 SECONDS (11.8-14.0)
== END ==
LOC: M SFHCADAM 13:42
PROVIDERS: ATTEND Internal Medicine
DX: I48.91 Unspecified atrial fibrillation (principal); Z79.01 Long term (current) use of anticoagulants

== ENCOUNTER → 2019-08-23 | Outpatient (REF) | payer MEDICARE, BC ==
[~2019-08-23] MED LIST changes: +B-122500 PO; +CHOL100029 PO; +GLIP5TAB20 PO; +ROCA0.25 PO
[2019-08-23 17:31] LABS: INR 2.04; PROTHROMBIN TIME 22.8 SECONDS (11.8-14.0)
== END ==
LOC: M LABDRWAD 16:34
PROVIDERS: ATTEND Internal Medicine
DX: Z51.81 Encounter for therapeutic drug level monitoring (principal); Z79.01 Long term (current) use of anticoagulants

== ENCOUNTER 2019-08-28 15:16 | Emergency (ER) | payer MEDICARE, BC ==
[~2019-08-28] VITALS: Ht 160 cm; Wt 78.2 kg
[~2019-08-28 15:16] MED LIST changes: -B-122500 PO; -CHOL100029 PO; -GLIP5TAB20 PO; -ROCA0.25 PO
[2019-08-28] MEDS ORDERED: CHOL100029 PO (15:37)
[2019-08-28] MEDS ORDERED: GLIP5TAB20 PO (15:38)
[2019-08-28] MEDS ORDERED: B-122500 PO (15:38)
[2019-08-28] MEDS ORDERED: ROCA0.25 PO (15:39)
[2019-08-28 17:23] LABS: BASO % 0.5 % (0.0-1.0); EOS # 0.1 10^3/uL (0.0-0.5); EOS % 1.5 % (0.0-3.0); HEMATOCRIT 40.1 % (36.0-47.0); HEMOGLOBIN 12.8 g/dl (12.0-15.5); LYMPH # 0.9 10^3/uL (1.5-5.0); LYMPH % 9.8 % (24.0-44.0); MEAN CORPUSCULAR HEMOGLOBIN 29.1 pg (27.0-33.0); MEAN CORPUSCULAR HGB CONC 31.9 g/dl (32.0-36.5); MEAN CORPUSCULAR VOLUME 91.1 fl (80.0-96.0); MONO # 0.6 10^3/uL (0.0-0.8); MONO % 6.9 % (0.0-5.0); NEUTROPHILS % 80.8 % (36.0-66.0); PLATELET COUNT, AUTOMATED 201 10^3/uL (150-450); WHITE BLOOD COUNT 8.7 10^3/uL (4.0-10.0)
--- NOTE | 2019-08-28 17:41 | REP ---
Clinical: Trauma. Technique: Portable view of the chest. Comparison: 04/03/2019. Findings: Stable cardiomegaly and pacemaker. Lung wooten demonstrate chronic changes. No obvious consolidation, effusion, or pneumothorax. Skeletal structures demonstrate osteopenia and degenerative changes. Bilateral shoulder replacement. Impression: Chronic stable changes. No acute cardiopulmonary process. Electronically Signed by Randy Carreno MD 08/28/2019 05:32 P
--- NOTE | 2019-08-28 17:42 | REP ---
Clinical: Trauma. Technique: AP, lateral, bilateral oblique views of the left knee. Findings: Extensive swelling, effusion and destructive changes are highly suspicious for osteomyelitis. Prior knee replacement. Impression: Swelling, effusion and extensive destructive changes suggesting osteomyelitis. Electronically Signed by Rnady Carreno MD 08/28/2019 05:34 P
[2019-08-28 17:44] LABS: INR 2.59; PROTHROMBIN TIME 27.6 SECONDS (11.8-14.0)
[2019-08-28 17:45] LABS: PARTIAL THROMBOPLASTIN TIME 37.6 SECONDS (25.0-38.4)
[2019-08-28 17:48] LABS: CREATININE FOR GFR 1.54 MG/DL (0.55-1.30); GLOMERULAR FILTRATION RATE 34.2 (>32); POTASSIUM SERUM 4.4 MEQ/L (3.5-5.1)
[2019-08-28 17:49] LABS: CALCIUM LEVEL 9.5 MG/DL (8.8-10.2)
[2019-08-28 20:19] VITALS: BP 167/74
== END 2019-08-28 20:20 | disposition short-term general hospital (02) ==
LOC: M ED 15:16 → EDBD 15:16 → M ED 20:20
DX: T84.093A Other mechanical complication of internal left knee prosthesis, initial encounter (principal); W01.0XXA Fall on same level from slipping, tripping and stumbling without subsequent striking against object, initial encounter; Y92.89 Other specified places as the place of occurrence of the external cause; Y93.89 Activity, other specified; Y99.8 Other external cause status; I50.9 Heart failure, unspecified; E11.9 Type 2 diabetes mellitus without complications; E78.70 Disorder of bile acid and cholesterol metabolism, unspecified; F17.200 Nicotine dependence, unspecified, uncomplicated; Z79.4 Long term (current) use of insulin; Z79.01 Long term (current) use of anticoagulants; Z79.899 Other long term (current) drug therapy; Z87.81 Personal history of (healed) traumatic fracture; Z91.018 Allergy to other foods; Z88.5 Allergy status to narcotic agent; Z88.8 Allergy status to other drugs, medicaments and biological substances; Z95.0 Presence of cardiac pacemaker

== ENCOUNTER → 2019-09-11 | Outpatient (REF) ==
[~2019-09-11] MED LIST changes: +B-122500 PO; +CHOL100029 PO; +GLIP5TAB20 PO; +ROCA0.25 PO
[2019-09-11 10:37] LABS: HEMATOCRIT 28.9 % (36.0-47.0); HEMOGLOBIN 8.9 g/dl (12.0-15.5); MEAN CORPUSCULAR HEMOGLOBIN 29.6 pg (27.0-33.0); MEAN CORPUSCULAR HGB CONC 30.8 g/dl (32.0-36.5); PLATELET COUNT, AUTOMATED 352 10^3/uL (150-450); RED BLOOD COUNT 3.01 10^6/uL (4.00-5.40); WHITE BLOOD COUNT 10.2 10^3/uL (4.0-10.0)
[2019-09-11 11:08] LABS: CALCIUM LEVEL 9.2 MG/DL (8.8-10.2); CREATININE FOR GFR 1.54 MG/DL (0.55-1.30); GLOMERULAR FILTRATION RATE 34.2 (>32); PERCENT SATURATION 11.7 % (13.2-45.0); POTASSIUM SERUM 4.3 MEQ/L (3.5-5.1)
== END ==
PROVIDERS: ATTEND Family Medicine
DX: D64.9 Anemia, unspecified (principal)

== ENCOUNTER 2019-09-15 15:48 | Emergency (ER) | payer MEDICARE, BC ==
[~2019-09-15] VITALS: Ht 152.4 cm; Wt 85.9 kg
[2019-09-15] MEDS ORDERED: ATOR1TAB21 PO (16:21)
[2019-09-15] MEDS ORDERED: OXYC-517 PO (16:21)
[2019-09-15] MEDS ORDERED: SEAMKIT PR (16:21)
[2019-09-15] MEDS ORDERED: BACL10TA2 PO (16:21)
[2019-09-15] MEDS ORDERED: CARV3.12 PO (16:21)
[2019-09-15] MEDS ORDERED: WARF4TAB51 PO (16:21)
[2019-09-15] MEDS ORDERED: AMLO5TAB6 PO (16:21)
[2019-09-15] MEDS ORDERED: GLUC1KIT IM (16:21)
[2019-09-15] MEDS ORDERED: PROC10TA4 PO ×2 (16:21)
[2019-09-15] MEDS ORDERED: FERR325T3 PO (16:21)
[2019-09-15] MEDS ORDERED: LANTINJ4 SC (16:21)
[2019-09-15] MEDS ORDERED: LEVO75TA4 PO (16:21)
[2019-09-15] MEDS ORDERED: BISA10SU4 PR (16:21)
[2019-09-15] MEDS ORDERED: MILKSUS3 PO (16:21)
[2019-09-15] MEDS ORDERED: ALLO100T PO (16:21)
[2019-09-15] MEDS ORDERED: SIME40TA PO (16:21)
[2019-09-15] MEDS ORDERED: SENN8.6T58 PO (16:21)
[2019-09-15] MEDS ORDERED: QC A650T3 PO (16:21)
[2019-09-15] MEDS ORDERED: FLON1SPR NARES (16:21)
[2019-09-15] MEDS ORDERED: ROCA0.5C PO (16:21)
[2019-09-15 16:48] LABS: BASO % 0.3 % (0.0-1.0); EOS # 0.1 10^3/uL (0.0-0.5); EOS % 2.1 % (0.0-3.0); LYMPH # 0.7 10^3/uL (1.5-5.0); LYMPH % 10.3 % (24.0-44.0); MEAN CORPUSCULAR HEMOGLOBIN 29.5 pg (27.0-33.0); MEAN CORPUSCULAR HGB CONC 30.2 g/dl (32.0-36.5); MEAN CORPUSCULAR VOLUME 97.6 fl (80.0-96.0); MONO # 0.4 10^3/uL (0.0-0.8); MONO % 6.2 % (0.0-5.0); NEUTROPHILS # 5.4 10^3/uL (1.5-8.5); NEUTROPHILS % 80.2 % (36.0-66.0); PLATELET COUNT, AUTOMATED 247 10^3/uL (150-450); RED BLOOD COUNT 2.07 10^6/uL (4.00-5.40); WHITE BLOOD COUNT 6.7 10^3/uL (4.0-10.0)
[2019-09-15 16:52] LABS: HEMATOCRIT 20.2 % (36.0-47.0); HEMOGLOBIN 6.1 g/dl (12.0-15.5)
[2019-09-15 17:10] LABS: INR 2.95; PROTHROMBIN TIME 30.7 SECONDS (11.8-14.0)
[2019-09-15 17:36] LABS: ALBUMIN 2.9 GM/DL (3.2-5.2); ALT/SGPT 54 U/L (12-78); BILIRUBIN,DIRECT 0.3 MG/DL (0.0-0.2); BILIRUBIN,TOTAL 1.1 MG/DL (0.2-1.0); BLOOD UREA NITROGEN 32 MG/DL (7-18); CALCIUM LEVEL 8.8 MG/DL (8.8-10.2); CARBON DIOXIDE LEVEL 27 MEQ/L (21-32); CHLORIDE LEVEL 106 MEQ/L (98-107); CPK CREATINE PHOSPHOKINASE 94 U/L (26-192); GLOMERULAR FILTRATION RATE 38.2 (>32); GLUCOSE, FASTING 114 MG/DL (70-100); MB/CK RELATIVE INDEX 3.19 (< OR =4); NT-PRO BNP 5929 PG/ML (<450); POTASSIUM SERUM 5.2 MEQ/L (3.5-5.1); SODIUM LEVEL 139 MEQ/L (136-145); TOTAL PROTEIN 6.1 GM/DL (6.4-8.2); TROPONIN I < 0.02 NG/ML (< 0.10)
--- NOTE | 2019-09-15 17:42 | REPVR ---
PROCEDURE INFORMATION: Exam: CT Head Without Contrast Exam date and time: 09/15/2019 5:24 PM Clinical history: 84 years old, female; Altered mental status/memory loss; Confusion or disorientation TECHNIQUE: Imaging protocol: Computed tomography of the head without contrast. Radiation optimization: All CT scans at this facility use at least one of these dose optimization techniques: automated exposure control; mA and/or kV adjustment per patient size (includes targeted exams where dose is matched to clinical indication); or iterative reconstruction. COMPARISON: No relevant prior studies available. FINDINGS: Brain: There is mild to moderate global parenchymal volume loss. Mild matter changes are demonstrated in the subcortical, centrum semiovale and periventricular white matter consistent with age related small vessel white matter angiopathic gliosis. Ventricles: The degree of ventricular dilatation is normal for age and/or degree of atrophy present. Bones/joints: Unremarkable. No acute fracture. Sinuses: Visualized sinuses are unremarkable. No fluid levels. Mastoid air cells: Visualized mastoid air cells are well aerated. Soft tissues: Unremarkable. IMPRESSION: 1. There is mild to moderate global parenchymal volume loss. Mild matter changes are demonstrated in the subcortical, centrum semiovale and periventricular white matter consistent with age related small vessel white matter angiopathic gliosis. 2. The degree of ventricular dilatation is normal for age and/or degree of atrophy present. Electronically signed by: Lb Frank On 09/15/2019 17:42:43 PM
[2019-09-15] MEDS ORDERED: FUROSEMIDE 20 MG/2 ML VIAL (J1940) IV ONE (18:00)
--- NOTE | 2019-09-15 18:09 | REP ---
Chest x-ray: Sitting AP view. History: Shortness of breath. Comparison study: August 28, 2019. Findings: The left hemidiaphragm is somewhat elevated. A multi lead pacemaker is seen in the enlarged heart via the left side as before. Monitoring electrodes are seen. Bilateral shoulder prosthesis sees are seen. There is no evidence of pleural effusion or pulmonary edema. Pulmonary vasculature is cephalized. Impression: Cardiomegaly, cephalization. Elevated left hemidiaphragm. No evidence of pleural effusion or pulmonary edema. Electronically Signed by Phil Masters MD 09/15/2019 06:46 P
--- NOTE | 2019-09-15 18:16 | REP ---
Left knee series: Four views: History: Assess hardware. Comparison left knee radiographs August 28, 2019. Findings: Anterior skin dena are seen. The patient is status post left knee arthroplasty revision with replacement of the distal femoral component due to metal fracture and destructive bony changes. There is periarticular soft-tissue swelling and there are periarticular soft tissue calcifications posteriorly. Prosthetic alignment is normal. There is a laterally applied screw plate fixation device in the distal femur. Old post-traumatic deformity is seen in the proximal tibia and proximal fibula. Impression: Status post left knee arthroplasty revision. No malalignment or acute fracture seen. Electronically Signed by Phil Masters MD 09/15/2019 06:46 P
[2019-09-15 18:35] VITALS: BP 164/79
[2019-09-15] MEDS ORDERED: LIDOCAINE 2% 5ML JELLY UROJET TOP ONE (18:45)
--- NOTE | 2019-09-15 19:13 | ECGEPIP ---
[facility] - ED Test Date: 2019-09-15 Pat Name: JUDY GAN Department: Room: - Gender: Female [employer]er: : [id number] Requested By: Rani Gan Order Number: [id number] Reading MD: Sophie Medina Measurements Intervals [place] Rate: 69 P: 240 FL: 192 QRS: -75 QRSD: 170 T: 116 QT: 464 QTc: 498 Interpretive Statements ELECTRONIC ATRIAL PACEMAKER ELECTRONIC VENTRICULAR PACEMAKER ABNORMAL RHYTHM ECG Electronically Signed on 09-15-2019 19:13:26 EST by Sophie Medina
[2019-09-15 21:20] VITALS: BP 163/82
== END 2019-09-15 21:08 | disposition short-term general hospital (02) ==
LOC: M ED 15:48 → EDBD 15:48 → UNDOADMIN 18:38 → M ED INP 18:38 → M ED 21:08
DX: I50.9 Heart failure, unspecified (principal); D64.9 Anemia, unspecified; R53.83 Other fatigue; R41.82 Altered mental status, unspecified; Z95.0 Presence of cardiac pacemaker; R94.31 Abnormal electrocardiogram [ECG] [EKG]; I51.7 Cardiomegaly; Z96.652 Presence of left artificial knee joint; E11.9 Type 2 diabetes mellitus without complications; I10 Essential (primary) hypertension; F17.200 Nicotine dependence, unspecified, uncomplicated
CPT/HCPCS: 36430; 36600; 51701; 70450; 71045; 73564; 80048; 80076; 81001; 82140; 82550; 82553; 82803; 83605; 83735; 83880; 84443; 84484; 85025; 85610; 85730; 86850; 86900; 86901; 86920; 87040; 87086; 87486; 87581; 87633; 87798; 93005; 93041; 96374; 99285; J1940; P9016